=== PATIENT | male | born 1985 | race African-American/Black ===

== ENCOUNTER 2018-11-03 19:18 | Emergency (ER) | payer SELFPAY ==
[2018-11-03] MEDS ORDERED: CEFTRIAXONE INJ 1000 MG VIAL IM STA (21:49)
[2018-11-03] MEDS ORDERED: DEXAMETHASONE SOD PHOS INJ 10 MG/1 ML VIAL IM ONE (21:50)
--- NOTE | 2018-11-03 22:39 | ER Document Report ---
ED ENT - General Chief Complaint: Sore Throat Stated Complaint: SORE THROAT Time Seen by Provider: 11/03/18 21:41 Mode of Arrival: Ambulatory Information source: Patient Notes: Patient is a 33-year-old male comes emergency room complaining of a 2-day onset of difficulty with swallowing and fever. Patient states it hurts to swallow but he is handling his secretions fine. He states that he has had congestion with a runny nose and a sore throat. He did not measure his fever he just felt hot. He denies any cough he does not smoke and he works as a cook. TRAVEL OUTSIDE OF THE [place] IN LAST 30 DAYS: No - HPI Patient complains to provider of: Nose problem, Throat problem Onset: Other Onset/Duration: Gradual - 2 days, Persistent, Worse Quality of pain: Achy Severity: Moderate Pain Level: 3 Location of pain: Sinus, Throat Associated symptoms: Chills, Difficulty swallowing, Runny nose, Sinus pain. denies: Cough, Stiff neck, Swollen glands Similar symptoms previously: No Recently seen / treated by doctor: No - Related Data Allergies/Adverse Reactions: Penicillins Allergy (Verified 11/03/18 19:34) Past Medical History - General Information source: Patient - Social History Smoking Status: Current Every Day Smoker Cigarette use (# per day): Yes - Quarter pack a day Chew tobacco use (# tins/day): No Smoking Education Provided: Yes Frequency of alcohol use: None Drug Abuse: None Lives with: Family Family History: Reviewed & Not Pertinent Patient has suicidal ideation: No Patient has homicidal ideation: No Renal/ Medical History: Denies: Hx Peritoneal Dialysis Review of Systems - Review of Systems Constitutional: Fever EENT: No symptoms reported, Nose congestion, Sinus pressure, Sinus discharge, Throat pain, Difficulty swallowing. denies: Throat swelling Cardiovascular: No symptoms reported Respiratory: No symptoms reported Gastrointestinal: No symptoms reported Genitourinary: No symptoms reported Male Genitourinary: No symptoms reported Musculoskeletal: No symptoms reported Skin: No symptoms reported Hematologic/Lymphatic: No symptoms reported Neurological/Psychological: No symptoms reported -: Yes All other systems reviewed and negative Physical Exam - Vital signs Vitals: Temp Pulse Resp BP Pulse Ox 97.6 F 66 16 125/82 98 11/03/18 19:37 11/03/18 19:37 11/03/18 19:37 11/03/18 19:37 11/03/18 19:37 Interpretation: Normal - Notes Notes: PHYSICAL EXAMINATION: GENERAL: Patient is well-nourished well-developed 33-year-old male who is in no apparent distress on physical exam tonight. Patient has mild laryngitis noted from interview. HEAD: Atraumatic, normocephalic. EYES: Pupils equal round and reactive to light, extraocular movements intact, sclera anicteric, conjunctiva are normal. ENT: Examination head and upper airway showed nasal mucosa to be mildly erythematous and edematous with no rhinorrhea noted. Patient does not have any frontal maxillary sinus tenderness to palpation. Bilateral TMs are not bulging and they are not retracting. There is no air-fluid levels in the appear normal. Landmarks are visible and bright. Further evaluation of the throat and oral cavity shows that patient has normal-appearing posterior pharynx there is no swelling no sign of the peritonsillar abscess or strep throat no abscess of the dental type. Patient actually has a mouth full of gold teeth. He does have some drainage in the posterior pharynx. NECK: Normal range of motion, supple without lymphadenopathy LUNGS: Breath sounds clear to auscultation bilaterally and equal. No wheezes rales or rhonchi. HEART: Regular rate and rhythm without murmurs ABDOMEN: Soft, nontender, nondistended abdomen. No guarding, no rebound. No masses appreciated. Musculoskeletal: Normal range of motion, no pitting or edema. No cyanosis. NEUROLOGICAL: Normal speech, normal gait. Normal sensory, motor exams PSYCH: Normal mood, normal affect. SKIN: Warm, Dry, normal turgor, no rashes or lesions noted. Course - Re-evaluation Re-evalutation: 11/04/18 02:07 I informed patient that we will run a strep test on him and I did not see anything major we treated for an upper respiratory infection I did tell him that we would give him a shot of some steroids and an antibiotic to kick it off because he just sounded so bad. Patient received the shots and felt much better and told the nurse she was ready to go home I wrote him for the steroid taper and the Sudafed and discharge patient home. Again there was no sign of any type of an obstruction abscess no allergic reaction type of this setting where he had angioedema everything was normal that I could see. 11/04/18 02:08 - Vital Signs Vital signs: Temp Pulse Resp BP Pulse Ox 97.8 F 63 16 136/82 H 99 11/03/18 22:46 11/03/18 22:46 11/03/18 22:46 11/03/18 22:46 11/03/18 22:46 Discharge - Discharge Clinical Impression: Pharyngitis Qualifiers: Pharyngitis/tonsillitis etiology: unspecified etiology Qualified Code(s): J02.9 - Acute pharyngitis, unspecified Condition: Stable Disposition: HOME, SELF-CARE Instructions: Sore Throat ([facility]), Tonsillitis ([facility]) Additional Instructions: Home and rest. Medication as prescribed. Use warm salt water gargles 3-4 times a day. Tylenol alternate with Motrin to keep the fever and aches and pains down. Should you have any concerns or problems return to ER for recheck. Prescriptions: Azithromycin [Zithromax 250 mg Tablet] 250 mg PO ASDIR PRN #6 tablet PRN Reason: Prednisone 5 mg PO ASDIR PRN 6 Days #1 tab.ds.pk PRN Reason: Pseudoephedrine HCl [Sudafed 12 Hour] 120 mg PO BID #20 tablet.er Forms: Return to Work Referrals: [facility] [NO LOCAL MD] - Follow up as needed
[2018-11-03 22:47] VITALS: BP 136/82
== END 2018-11-03 22:47 | disposition home or self-care (01) ==
LOC: ER 19:18
DX: J02.9 Acute pharyngitis, unspecified (principal); Z88.0 Allergy status to penicillin; F17.210 Nicotine dependence, cigarettes, uncomplicated
CPT/HCPCS: 99283; 96372; 87070; 87880; J0696; J1100